=== PATIENT | female | born 1955 | race Caucasian/White ===

== ENCOUNTER 2022-11-22 10:41 | Emergency (ER) | payer MEDICARE, SELFPAY ==
[2022-11-22 10:45] VITALS: BP 149/84; PULSE 84; RESP 18; TEMP 36.7; O2SAT 97; BMI 29.5
--- NOTE | 2022-11-22 10:48 | XR_ITS ---
The [address] [address] Patient Name: GORDON ORTEGA MRN: [id number] date: 1955 Sex: F Assigned Patient Location: ER Current Patient Location: ED.MAIN Accession/Order Number: [id number] Exam Date: 11/22/2022 10:57 Report Date: 11/22/2022 11:29 At the request of: MARIELLE BEASLEY Procedure: XR ribs RT min 3V w CXR1V EXAMINATION: XR ribs RT min 3V w CXR1V 11/22/2022 8:27 AM PDT HISTORY: injury COMPARISONS: None. FINDINGS: Lines and tubes: None. Heart and mediastinum: The heart and the mediastinum are normal for technique. Lungs and pleura: The lungs are clear. There is no evidence of pneumonia or pulmonary edema. There is no pleural effusion or pneumothorax. Bones: No acute osseous abnormality. RIGHT RIBS: No displaced rib fracture. XR/XR ribs RT min 3V w CXR1V IMPRESSION: 1. No acute cardiopulmonary disease. 2. No displaced rib fracture on the right. Electronically authenticated by: SUE BREWER Date: 11/22/2022 11:29
--- NOTE | 2022-11-22 11:13 | ED.GENADUL1 ---
HPI - General Adult General Chief complaint: Extremity Injury, Upper Stated complaint: RT RIB PAIN/FALL Time Seen by Provider: 11/22/22 11:07 Source: patient Mode of arrival: walk-in Limitations: no limitations History of Present Illness HPI narrative: Patient is a 67-year-old female who is presenting to the Emergency Room after a rib injury. Patient states she was in [place] last night, helping her son set up for an event. Patient says that there is a chair that somehow became loose, and hit the right lower anterior aspect of her chest wall. Patient's having pain underneath the right breast radiating across the right anterior chest wall causing some pain along with pain to the right breast as well. Patient drove home furniture last night. He got home around 2 in the morning. Patient took Tylenol with the bed. Patient woke up and was still having the pain since she came in for evaluation. Patient has pain with deep inspiration, no bruising, no bruising to the right breast, no other acute complaints at this time. Patient drove to the Emergency Room today. . All systems are negative except as noted/marked. All systems reviewed and otherwise negative. . Nurses note and vital signs reviewed and patient is not hypoxic. General: The patient appears well and in no apparent distress. Patient is resting comfortably on cart. Patient is not toxic, lethargic, or listless Skin: Warm, dry, no pallor noted. There is no rash noted. No petechiae, purpura. Head: Normocephalic, atraumatic Eye: Normal conjunctiva, no drainage, EOMI. PERRL Ears, Nose, Mouth, and Throat: oral mucosa is moist. Nares patent. Mouth without vesicles. Cardiovascular: Regular Rate and Rhythm, no murmur, gallop, rub, Patient has mild to moderate tenderness to palpation to the right lower anterior chest wall, midclavicular line over ribs approximate 5-7, And also underneath the right breast. I did not examine the right breast, patient's Says there is no bruising to her right breast. Patient has no bruising to the lower right anterior chest wall over the right lateral chest wall. Patient has splinting with deep inspiration. No other acute injury. Respiratory: Patient is in no distress, no accessory muscle use, lungs are clear to auscultation, no wheezing, rales or rhonchi Back: non-tender, no CVA tenderness bilaterally to percussion. No CT LS midline pain. No pain to the right anterior chest wall with deep palpation to the right posterior and right lateral chest wall. GI: soft, no tenderness Musculoskeletal: Patient has full range of motion of all of the extremities, no motor, sensory, or focal neurological deficits Neurological: A&O x3, normal speech Psychiatric: Cooperative Related Data Home Medications Medication Instructions Recorded Confirmed No Known Home Medications 11/22/22 11/22/22 Allergies Allergy/AdvReac Type Severity Reaction Status Date / Time Sulfa (Sulfonamide AdvReac Intermediate Verified 11/22/22 10:45 Antibiotics) trimethoprim AdvReac Intermediate Verified 11/22/22 10:45 bactrim AdvReac Intermediate Uncoded 11/22/22 10:45 Exam Constitutional Vital Signs, click to edit/add: Last Vital Signs Temp 98.0 F 11/22/22 10:45 Pulse 84 11/22/22 10:45 Resp 18 11/22/22 10:45 BP 149/84 H 11/22/22 10:45 Pulse Ox 97 11/22/22 10:45 O2 Del Method Room Air 11/22/22 10:45 Course Vital Signs Vital signs: Vital Signs Temperature 98.0 F 11/22/22 10:45 Pulse Rate 84 11/22/22 10:45 Respiratory Rate 18 11/22/22 10:45 Blood Pressure 149/84 H 11/22/22 10:45 Pulse Oximetry 97 11/22/22 10:45 Oxygen Delivery Method Room Air 11/22/22 10:45 Temperature 98.0 F 11/22/22 10:45 Pulse Rate 84 11/22/22 10:45 Respiratory Rate 18 11/22/22 10:45 Blood Pressure 149/84 H 11/22/22 10:45 Pulse Oximetry 97 11/22/22 10:45 Oxygen Delivery Method Room Air 11/22/22 10:45 Medical Decision Making [facility] Narrative Medical decision making narrative: Patient chest x-ray shows no acute cardio poor disease, no rib fracture. See the official report. Patient had ice applied, was given an incentive sprout her. X-ray show no acute findings. Patient was educated on alternate Tylenol and anti-inflammatories for pain along with ice. Patient follow-up with PCP. Activity as tolerated by patient at home. Patient was here lengthy amount time secondary to volume in a critical patient at that time. Patient is very understanding, no questions at discharge. Discharge Plan Discharge Chief Complaint: Extremity Injury, Upper Clinical Impression: Rib pain on right side Patient Disposition: Home, Self-Care Condition: Good Prescriptions / Home Meds: No Action No Known Home Medications Instructions: Chest Wall Pain (ED), Rib Contusion (ED) Additional Instructions: Ice 20 minutes on, 20 minutes off. Alternate Tylenol and anti-inflammatories for pain. Follow-up with PCP. Use incentive spirometer every hour while awake. Stand Alone Forms: Portal Instructions Referrals: LOUISE URIARTE [Primary Care Provider] - 1 week Discharge Date/Time: 11/22/22 14:23
[2022-11-22] MEDS: ACETAMINOPHEN 500 MG TABLET 1000 MG PO (11:28)
== END 2022-11-22 14:23 | disposition home or self-care (01) ==
PROVIDERS: Emergency Provider Emergency Medicine; PCP Family Medicine
DX: R07.81 Pleurodynia (principal)
CPT/HCPCS: 71101; 94667; 99283

== ENCOUNTER 2025-03-21 14:48 | Outpatient (OUT) | payer MEDICARE, SELFPAY ==
--- OUTSIDE RECORDS SUMMARY | 2025-03-21 14:50 | XMS_ITS | Clinical Summary ---
Author Organization [facility] Healthcare Address [address] [place] [address] Care Team Providers Care Criminal Justice Social Worker Name Role Phone Kenrick Garay MD Unavailable [phone] Kenrick Garay MD Primary Care Provider [phone] Debra Avina MD Unavailable [phone] Maliha Hammond DO Unavailable [phone] Allergies Active AllergyReactionsCriticalityNoted RosuXeahkxslRpotjskmsasfDkrqu07/07/2024 myalgias SulfamethoxazoleGI luayhcvuwtp53/17/2023Sulfamethoxazole-TrimethoprimGI afkxglpzjff91/17/1360Dyyakaqrpyib85/17/2023 Other Reaction(s): GI upset Medications MedicationSigDispense QuantityRefillsLast FilledStart DateEnd DateStatus aspirin 81 MG chewable tablet 1 tablet Orally M-W-FActive Multiple Vitamin (MULTIVITAMIN ADULT PO) MultivitaminActive Calcium Carbonate Antacid (CALCIUM CARBONATE PO) CalciumActive clobetasol (Temovate) 0.05 % external solution Indications:Psoriasis vulgarisApply to affected areas on the scalp up to twice a day when flared, do not use one the face, groin,or underarms, 30 day supply 50 mL ctive triamcinolone (Kenalog) 0.1 % cream Indications:DermatographismApply to affected areas, up to twice a day when flared, do not use one the face, groin, or underarms, 30 day supply 80 g 4Active Probiotic Product (Probiotic Daily) capsule Take 1 capsule by mouth 3 (three) times a weekActive polyethylene glycol, PEG, 3350 (Miralax) 17 g packet Take 17 g by mouth 3 (three) times a weekActive cycloSPORINE (Restasis) 0.05 % ophthalmic emulsion Administer 1 drop into both eyes in the morning and 1 drop before bedtime. 4Active Magnesium Bisglycinate 100 MG tablet Indications:Chronic fatigueTake 1 tablet by mouth in the /21/2025Active NIACIN SR Indications:Mixed dyslipidemiaTake 500 mg by mouth in the uspvxox8905/11/2024 Active Additional Information Patient not taking.Reported on 01/31/2025 carBAMazepine (TEGretol) 200 MG tablet Indications:Trigeminal neuralgia of right side of faceTake 0.5-1 tablets (100- 200 mg) by mouth 2 (two) times a day 180 tablet 506Active gxwccycr-lnpdigcvh-nyhlntmsswnvdy (Cortisporin) 3.5-37909-7 otic suspension Indications:Infective Otitis ExternaApply 3 drops to affected ear 3 times daily for 7 days 10 mL 5Active Active Problems ProblemNoted DateDiagnosed DateCardiac ouethg155Chronic kidney disease, stage 2 (mild)09/23/2024Myalgia due to mvibmf6309/23/2024Mixed dyslipidemia 06/19/2023Trigeminal neuralgia of right side of face06/16/2023Irritable bowel syndrome with upspmwukkucv72/29/2074Qlvdtxnka62/17/2023Urge incontinence of urine09/27/2021Gastroesophageal reflux disease with esophagitis without hotkddyqvn89/28/2022hronic pyfcjnv7805/30/2016Varicose veins of both lower qkmxolewsiy78/09/2017Family history of breast jxpwjc6110/19/2015Fibrocystic breast wzysgkz6510/19/2015Acquired ukjfavatfqjjbz76/16/2015ESS (euthyroid sick syndrome) 04/05/2015Venous (peripheral) pibbynwqddkgs50/16/2015 Encounters DateTypeDepartmentCare QkopWkubspvordp39/20/2025Telephone [facility] [place] [facility] [address] [place] [address] Caitlin Yeh, ELVIRA Care Pdqkoebjffow53/17/2025Telephone [facility] [place] [facility] [address] [facility] [address] [place] [address] Kenrick Garay MD Care Qntyhoomkpss21/17/2025Telephone [facility] [place] [address] [facility] [address] [facility] [address] [place] [address] Kenrick Garay MD 02/01/2025Telephone [facility] [address] [place] [facility] [place] [address] Shannon Rojo NP 01/31/2025 11:25 AM EDTOffice Visit [facility] [place] [facility] [address] [place] [phone] Shannon Rojo NP Acute cystitis without hematuria (Primary Dx); Shgdftz0801/31/20251764Whspyi04/06/2025Telephone [facility] [address] [place] [address] Tatianna Chen LPN 01/20/2025Results Follow-Up [facility] [place] [facility] [address] [place] [address] Ashley Roa PA Dermatopathology exam01/13/2025 8:30 AM EDTOffice Visit [facility] [address] [place] [address] Debra Avina MD Seborrheic keratosis, inflamed (Primary Dx); Neoplasm of unspecified behavior of bone, soft tissue, and skin01/13/2025amboo flowsheet [facility] [address] [place] [address] Debra Avina MD 01/13/2025Travelfrom Last 3 Months Immunizations ImmunizationAdministration DatesNext DuePneumococcal Polysaccharide PPSV23 03/03/2008 Family History Medical HistoryRelationNameCommentsMVABrotherBrain cancerFatherLouis Jono FletcherCancerFatherLouis Jono FletcherBreast cancerMaternal Grandmother HypertensionMotherMaryEllen FletcherDiabetesPaternal GrandmotherMabel Neal Colon cancerNeg HxMelanomaNeg HxOvarian cancerNeg HxRelationNameStatusComments BrotherDeceased1 brotherDaughterAlive1 daughterFatherLouis Jono FletcherDeceased Maternal GrandmotherMotherMaryEllen FletcherDeceasedPaternal GrandmotherMabel FletcherSisterAlive1 sisterSonAlive1 son Social History Tobacco UseTypesPacks/DayYears UsedDateSmoking Tobacco: NeverSmokeless Tobacco: Never Tobacco Cessation:Counseling Given: Yes Alcohol UseStandard Drinks/WeekCommentsNot Currently2 (1 standard drink = 0.6 oz pure alcohol)Caffeine intake: decaf coffee, xpfsL1250 Health LiteracyAnswerDate RecordedHow often do you need to have someone help you when you read instructions, pamphlets, or other written material from your doctor or pharmacy? Never04/01/2024Humiliation, Afraid, Rape, and Kick questionnaireAnswerDate RecordedWithin the last year, have you been afraid of your partner or ex-partner?No12/16/2022Within the last year, have you been humiliated or emotionally abused in other ways by your partner or ex-partner?No12/16/2022 Within the last year, have you been kicked, hit, slapped, or otherwise physically hurt by your partner or ex-partner?No12/16/2022Within the last year, have you been raped or forced to have any kind of sexual activity by your part ner or ex-partner?No12/16/2022Social Connection and Isolation PanelAnswerDate RecordedIn a typical week, how many times do you talk on the phone with family, friends, or neighbors?More than three times a week04/01/2024How often do you get together with friends or relatives?Twice a week04/01/2024How often do you attend scientologist or restorationist services?More than 4 times per year04/01/2024o you belong to any clubs or organizations such as scientologist groups, unions, fraternal or athletic groups, or school groups?Yes04/01/2024How often do you attend meetings of the clubs or organizations you belong to?More than 4 times per year04/01/2024 Are you , , , , never , or living with a partner?Rkwniii6004/01/2024UDIT-CAnswerDate RecordedQ1: How often do you have a drink containing alcohol?Monthly or less04/01/2024Q2: How many drinks containing alcohol do you have on a typical day when you are drinking?1 or Q3: How often do you have six or more drinks on one occasion?Never04/01/2024Overall Financial Resource Strain (CARDIA)AnswerDate RecordedHow hard is it for you to pay for the very basics like food, housing, medical care, and heating?Not hard at all04/01/2024HQ-2AnswerDate RecordedPatient Health Questionnaire-2 Score0 10/30/2024[facility] [place] [facility] Occupational Health - Occupational Stress QuestionnaireAnswerDate RecordedDo you feel stress - tense, restless, nervous, or anxious, or unable to sleep at night because yourmind is troubled all the time - these days?Not at all04/01/2024Exercise Vital SignAnswerDate RecordedOn average, how many days per week do you engage in moderate to strenuous exercise (like a brisk walk)?3 days04/01/2024On average, how many minutes do you engage in exercise at this level?30 min04/01/2024Hunger Vital SignAnswerDate Recorded Within the past 12 months, you worried that your food would run out before you got the money to buymore.Never true04/01/2024Within the past 12 months, the food you bought just didn't last and you didn't have money to get more.Never true 04/01/2024RAPARE - TransportationAnswerDate RecordedIn the past 12 months, has lack of transportation kept you from medical appointments or from getting medications?No04/01/2024In the past 12 months, has lack of transportation kept you from meetings, work, or from getting things needed for daily living?No 04/01/2024Housing Stability Vital SignAnswerDate RecordedIn the last 12 months, was there a time when you were not able to pay the mortgage or rent on time?No 12/16/2022Number of Places Lived in the Last YearNot on file12/16/2022In the last 12 months, was there a time when you did not have a steady place to sleep or slept in [place] (including now)?No12/16/2022Housing Stability Vital Sign AnswerDate RecordedIn the last 12 months, was there a time when you were not able to pay the mortgage or rent on time?No04/01/2024Number of Times Moved in the Last YearNot on file04/01/2024t any time in the past 12 months, were you homeless or living in a senior living (including now)?No04/01/2024CommentsNo Sex and Gender InformationValueDate RecordedSex Assigned at BirthNot on file Legal XqdLelori88/15/2023 6:46 PM EDTGender IdentityNot on fileSexual OrientationNot on fileOccupationIndustryJob Start DateJob End DateRetired , TeacherNot on fileNot on fileNot on file Last Filed Vital Signs Vital SignReadingTime TakenCommentsBlood Urueodyy901/8601/31/2025 11:30 AM EDT Ckbrd386901/31/2025 11:30 AM VVWUpfoyibphwy35.9 ??C (98.5 ??F)01/31/2025 11:30 AM EDTRespiratory Oztn4804 11:30 AM EDTOxygen Vtutdkgarm33%01/31/2025 11:30 AM EDTInhaled Oxygen Concentration--Racpte24.2 kg (157 lb)01/31/2025 11:30 AM KZRFonilz027.7 cm (5' 8 )11/02/2024 9:05 AM EDTBody Mass Index23.8711/02/2024 9:05 AM EDT Plan of Treatment DateTypeDepartmentCare Team (Latest Contact Info)Beinudqvadm73/20/2026 1:00 PM ESTOffice Visit [facility] [address] [place] [phone] Debra Avina MD [address] [place] [address] 05/12/2025 10:15 AM ESTOffice Visit [facility] [address] [place] [phone] Maliha Hammond DO [address] [place] [address] 08/09/2025 2:00 PM EDTOffice Visit [facility] [address] [place] [address] Debra Avina MD [address] [place], [place] [phone] Health MaintenanceDue DateLast DoneCommentsCT Zxpelkwdmbyu39/12/1955FIT-DNA 1955FIT1955FOBT1955 8098Odazbrbobdqkh79/12/8483Muwzhdige92/10/2026 04/30/2024, 02/21/2022, 01/24/2021, Additional history existsMedicare Annual Wellness (AWV), 04/28/2024, 06/16/2023, Additional history existsPneumococcal Vaccine: 65+ Years (2 of 2 - PCV) Postponed from 03/03/2009 (Patient Refused)Xwcgygkofwu08, 01/13/2024, 11/14/2021, Additional history existsColorectal Cancer Screening 4COVID-19 VaccineDiscontinuedInfluenza VaccineDiscontinued Procedures Procedure NamePriorityDate/TimeAssociated DiagnosisCommentsURINARY TRACT INFECTION (HTRX)Nghqkme3901/31/2025 11:43 AM EDT Acute cystitis without hematuria URINALYSIS ANALYZER FZLQTwbynrs08/13/2025 11:29 AM EDT Dysuria LIPID AGIMOIuiejul70/06/2025 10:10 AM EDT Mixed dyslipidemia CRYOTHERAPY SKIN SPARQJSoffhta47/25/2025 9:00 AM EDT Seborrheic keratosis, inflamed SKIN / NAIL EGGYAGHvqfttb78/25/2025 8:41 AM EDT Neoplasm of unspecified behavior of bone, soft tissue, and skin DERMATOPATHOLOGY LWGQSzlupua70/25/2025 12:00 AM EDT Neoplasm of unspecified behavior of bone, soft tissue, and skin BI MAMMOGRAM SCREENING TOMOSYNTHESIS BEVTMBCZZMesdjiw66/10/2025 9:34 AM EST Encounter for screening mammogram for breast cancer HKKKCVNJXFVKoclsgq55/24/2024 8:29 AM EDTfrom Last 3 Months or Most Recently Relevant to Health Maintenance Results * URINARY TRACT INFECTION (HTRX) (01/31/2025 11:43 AM EDT)ComponentValueRef RangeTest MethodAnalysis TimePerformed AtPathologist SignatureACINETOBACTER HAILNSQH622.961 - 24.689 ppm02/01/2025 7:46 AM EDTHealth[facility] ACINETOBACTER BAUMANIINot Ttrqfryp10.961 - 24.689 ppm02/01/2025 7:46 AM EDT [facility] LabPortCITROBACTER HVJNNTNB443.000 - 32.015 ppm02/01/2025 7:46 AM EDTHealthTrackRx at LabPortCITROBACTER FREUNDIINot Kubrwkqj47.000 - 32.015 ppm02/01/2025 7:46 AM EDTHealthTrackRx at LabPortENTEROBACTER AEROGENES, NWKGKPQ944.000 - 32.290 ppm02/01/2025 7:46 AM EDTHealthTrackRx at LabPortENTEROBACTER AEROGENES, CLOACAENot Angdhjdd34.000 - 32.290 ppm 02/01/2025 7:46 AM EDTHealthTrackRx at LabPortENTEROCOCCUS FAECALIS, FAECIUM0 26.000 - 33.043 ppm02/01/2025 7:46 AM EDTHealthTrackRx at LabPortENTEROCOCCUS FAECALIS, FAECIUMNot Wgfxjhpp26.000 - 33.043 ppm02/01/2025 7:46 AM EDT [facility] at LabPortESCHERICHIA SFCX072.000 - 28.500 ppm02/01/2025 7:46 AM EDTHealthTrackRx at LabPortESCHERICHIA COLINot Dxlptgub07.000 - 28.500 ppm 02/01/2025 7:46 AM EDTHealthTrackRx at LabPortKLEBSIELLA PNEUMONIAE, OXYTOCA0 23.000 - 31.865 ppm02/01/2025 7:46 AM EDTHealthTrackRx at LabPortKLEBSIELLA PNEUMONIAE, OXYTOCANot Bylcczsf48.000 - 31.865 ppm02/01/2025 7:46 AM EDT [facility] at LabPortMORGANELLA UNXILOFC427.961 - 24.689 ppm02/01/2025 7:46 AM EDTHealthTrackRx at LabPortMORGANELLA MORGANIINot Mysmzvqj54.961 - 24.689 ppm02/01/2025 7:46 AM EDTHealthTrackRx at LabPortPROTEUS MIRABILIS, VULGARIS0 23.000 - 28.500 ppm02/01/2025 7:46 AM EDTHealthTrackRx at LabPortPROTEUS MIRABILIS, VULGARISNot Iahbbgja17.000 - 28.500 ppm02/01/2025 7:46 AM EDT [facility] at LabPortPSEUDOMONAS ISGNFHZZTE749.000 - 31.801 ppm02/01/2025 7:46 AM EDTHealthTrackRx at LabPortPSEUDOMONAS AERUGINOSANot Caxcsotc42.000 - 31.801 ppm02/01/2025 7:46 AM EDTHealthTrackRx at LabPortSTAPHYLOCOCCUS AUREUS0 26.000 - 31.595 ppm02/01/2025 7:46 AM EDTHealth[facility] at [facility] STAPHYLOCOCCUS AUREUSNot Pttxwozh82.000 - 31.595 ppm02/01/2025 7:46 AM EDT [facility] at LabPortSTREPTOCOCCUS AGALACTIAE (GROUP B STREP)026.000 - 32.435 ppm02/01/2025 7:46 AM EDTHealthTrackRx at LabPortSTREPTOCOCCUS AGALACTIAE (GROUP B STREP)Not Bowvmvet94.000 - 32.435 ppm02/01/2025 7:46 AM EDTHealthTrackRx at LabPortCANDIDA ALBICANS, PARAPSILOSIS, MNVBORRWCB401.000 - 30.347 ppm02/01/2025 7:46 AM EDTHealthTrackRx at LabPortCANDIDA ALBICANS, PARAPSILOSIS, TROPICALISNot Agolyxqx98.000 - 30.347 ppm02/01/2025 7:46 AM EDT [facility]PortCANDIDA HLAIDMRR630.000 - 31.618 ppm02/01/2025 7:46 AM EDTHealthTrackRx at LabPortCANDIDA GLABRATANot Qppzgnvm61.000 - 31.618 ppm 02/01/2025 7:46 AM EDTHealthTrackRx at LabPortCANDIDA MCMFNR887.000 - 30.873 ppm02/01/2025 7:46 AM EDTHealthTrackRx at LabPortCANDIDA KRUSEINot Detected 23.000 - 30.873 ppm02/01/2025 7:46 AM EDTHealthTrackRx at LabPortSERRATIA OPUKXIVSID933.000 - 31.581 ppm02/01/2025 7:46 AM EDT[facility] SERRATIA MARCESCENSNot Bpyhtplz01.000 - 31.581 ppm02/01/2025 7:46 AM EDT [facility] at LabPortSTREPTOCOCCUS PYOGENES (GROUP A STREP)019.961 - 24.689 ppm02/01/2025 7:46 AM EDTHealthTrackRx at LabPortSTREPTOCOCCUS PYOGENES (GROUP A STREP)Not Zzyjcpom14.961 - 24.689 ppm02/01/2025 7:46 AM EDTHealthTrackRx at LabPortSTAPHYLOCOCCUS EPIDERMIDIS, HAEMOLYTICUS, LUGDUNENSIS, SAPROPHYTICUS (MUPHH790.961 - 24.689 ppm02/01/2025 7:46 AM EDT[facility] STAPHYLOCOCCUS EPIDERMIDIS, HAEMOLYTICUS, LUGDUNENSIS, SAPROPHYTICUS (URINANot Juyapvwk68.961 - 24.689 ppm02/01/2025 7:46 AM EDT[facility] at [facility] STAPHYLOCOCCUS EPIDERMIDIS, HAEMOLYTICUS, LUGDUNENSIS, SAPROPHYTICUS (URINA0 19.961 - 24.689 ppm02/01/2025 7:46 AM EDT[facility] at [facility] STAPHYLOCOCCUS EPIDERMIDIS, HAEMOLYTICUS, LUGDUNENSIS, SAPROPHYTICUS (URINANot Gyqhafyu48.961 - 24.689 ppm02/01/2025 7:46 AM EDTHealth[facility] Specimen (Source)Anatomical Location / LateralityCollection Method / Volume Collection TimeReceived BuxyHflli63/13/2025 11:43 AM EDT1 2:05 AM EDT Narrative Authorizing ProviderResult TypeResult StatusShannon Rojo [facility] BLOOD ORDERABLESFinal ResultPerforming OrganizationAddressCity/State/ZIP CodePhone Number [facility] [address] [place] [address] * URINALYSIS ANALYZER TEST (01/31/2025 11:29 AM EDT)ComponentValueRef RangeTest MethodAnalysis TimePerformed AtPathologist SignatureLEUKOCYTESnegativeNegative NITRITESnegativeNegativeUROBILINOGENnegative0.2 - 1.0PROTEINnegativeNegativePH 6.05.0 - 6.0BLOODnegativeNegativeSPECIFIC GRAVITY1.0151.001 - 1.035KETONES negativeNegativeBILIRUBINnegativeNegativeGLUCOSEnegativeNegativeSpecimen (Source)Anatomical Location / LateralityCollection Method / VolumeCollection TimeReceived ZygqDsryj82/13/2025 11:29 AM EDT Narrative Authorizing ProviderResult TypeResult StatusMichael Salas DOPOINT OF CARE TEST ENTER/EDIT ORDERABLESFinal Result * (ABNORMAL) Lipid panel (01/24/2025 10:10 AM EDT)ComponentValueRef RangeTest MethodAnalysis TimePerformed AtPathologist SignatureCHOLESTEROL, RDGAQ083(H) <200 mg/dLQUESTHDL NCDWRAHTZAS72> OR = 50 mg/wDKVBLBEYQPYXIGKIWYS55<150 mg/dL QUESTLDL QDCBTJPCZBE633(H)mg/dL (calc)QUESTComment: Reference range: <100 Desirable range <100 mg/dL for primary prevention; <70 mg/dL for patients with CHD or diabetic patients with > or = 2 CHD risk factors. LDL-C is now calculated using the Esepranza calculation, which is a validated novel method providing better accuracy than the Friedewald equation in the estimation of LDL-C. Alejandro DENIS et al. ROSY. 2013;310(19): 7202-0486 (http://education.Action.Compliance 360/faq/TUA941) CHOL/HDLC RATIO2.8<5.0 (calc)QUESTNON HDL QLXMWUUAHVN270(H)<130 mg/dL (calc) QUESTComment: For patients with diabetes plus 1 major ASCVD risk factor, treating to a non-HDL-C goal of <100 mg/dL (LDL-C of <70 mg/dL) is considered a therapeutic option. Specimen (Source)Anatomical Location / LateralityCollection Method / Volume Collection TimeReceived TimeBloodVenous blood specimen / Ctbbnsq6601/24/2025 10:10 AM EDT1 10:10 AM EDT Narrative [facility] - 01/25/2025 6:02 AM EDT FASTING:YES FASTING: YES Resulting Agency Comment Performing Organization Information ?Site ID: [id number] ?Name: [facility] ?Address: [address] [place] [phone] ?Director: Praveen Dewey MD Authorizing ProviderResult TypeResult StatusEdcarline Garay MDLAB BLOOD ORDERABLESFinal ResultPerforming OrganizationAddressCity/State/ZIP CodePhone Number [facility]ST * Cryotherapy, skin lesion (01/13/2025 9:00 AM EDT) Narrative Authorizing ProviderResult TypeResult StatusEmisabell Avina MDDERM PROCEDURE ORDERABLESFinal Result * Lesion biopsy (01/13/2025 8:41 AM EDT) Narrative Rosa Richardson MA - 01/13/2025 8:41 AM EDT Type of biopsy: tangential Informed consent: discussed and consent obtained ?? Informed consent comment: ??The risks and benefits of the biopsy were discussed. Risks include but are not limited to bleeding, infection, scarring, pain, and nerve damage. An opportunity to ask questions prior to the procedure was permitted and all questions were answered. Patient was prepped and draped in usual sterile fashion: area cleansed with alcohol. Anesthesia: the lesion was anesthetized in a standard fashion ?? Anesthetic: ??1% lidocaine w/ epinephrine 1-100,000 buffered w/ 8.4% NaHCO3 Instrument used: DermaBlade ?? Hemostasis achieved with: electrodesiccation ?? Outcome: patient tolerated procedure well ?? Outcome comment: ??The specimen was placed in a prelabeled formalin container to be sent for pathology Post-procedure details: sterile dressing applied and wound care instructions given ?? Post-procedure details comment: ??Emphasized need to contact clinic for any signs of infection, uncontrollable bleeding, or complications. Dressing type: bandage ?? Additional details: ??Photo taken: yes Amount of lidocaine used: 0.3 cc Authorizing ProviderResult TypeResult StatusEmily A Fabrice MDDERM PROCEDURE ORDERABLESFinal Result * Dermatopathology exam (01/13/2025 12:00 AM EDT)ComponentValueRef RangeTest MethodAnalysis TimePerformed AtPathologist SignatureSPECIMEN TYPE SPECIMEN: RIGHT MALAR CHEEK EMILY ONCXLTMFNGIUTT18 Code C44.319AURORA DIAGNOSTICSPROTOCOLF - FLATAURORA DIAGNOSTICSFinal Diagnosis NODULAR BASAL CELL CARCINOMA (SEE COMMENT). COMMENT: The tumor is transected across the base. EMILY DIAGNOSTICSGross TextAURORA DIAGNOSTICSMicroscopic DescriptionMicroscopic examination performed.EMILY [id number]*1AURORA DIAGNOSTICSSpecimen (Source)Anatomical Location / LateralityCollection Method / VolumeCollection TimeReceived TimeSkinTopography unknown / Hdehtjp4101/13/2025 8:41 AM EDTComment: Differential Diagnosis: BCC vs sebaceous hyperplasia Check Margins: No Size of lesion: 0.5 x 0.4 cm Diagnosis: (D49.2) Neoplasm of unspecified behavior of bone, soft tissue, and skin Plan: Lesion biopsy Narrative Authorizing ProviderResult TypeResult StatusEmily Kristi ALDANA PATHOLOGY ORDERABLESFinal ResultPerforming OrganizationAddressCity/State/ZIP CodePhone Number [facility] * Bilateral screening mammogram with tomosynthesis (04/30/2024 9:34 AM EST) Anatomical RegionLateralityModalityBreastBilateralMammographySpecimen (Source) Anatomical Location / LateralityCollection Method / VolumeCollection Time Received Time04/30/2024 9:34 AM EST Impressions 04/30/2024 9:37 AM EST NO MAMMOGRAPHIC EVIDENCE OF MALIGNANCY. ? ROUTINE FOLLOW-UP IS RECOMMENDED IN ONE YEAR. ? RESULT CODE: 1 ? Negative ? DENSITY CODE: 2 (approximately 25-50% glandular) ? FOLLOW UP: 1YR ? The false-negative rate of mammography is approximately 10-percent. ? Management of a palpable abnormality must be based on clinical grounds. ? Patient was entered into a reminder system with a target due date for the next mammogram. ? Impression dictated by: Ranjan Lee Jr., D.O.04/30/2024 9:35 AM ? Dictation Location: S01 ? Transcribed By: ? PWS ?04/30/24 0935 ? Dictated By: ?Ranjan Lee Jr, DO ?04/30/24 0934 ? Signed By: <Electronically signed by Ranjan Lee Jr, DO in OV> ?04/30/24 0935 Narrative 04/30/2024 9:37 AM EST [facility] ?[facility] [place] ?[address] ? [place] [address] ? Mammography Report ? Signed ? Patient: Nottke,Shannan L ?MR#: [id number] ? : 1955 ?Acct:[id number] ? Age/Sex: 68 / F ?ADM Date: 04/30/24 ? Loc: [place] ?Room: ?Type: REG CLI ?? Attending Dr: Maliha Hammond DO ?? Copies to: Kenrick Garay MD ?? Maliha Hammond, DO ? Ordering Provider: Maliha Hammond, DO ?? Date of Service: 04/30/24 ?? MM/MM screening mammo BI w/CAD: screening ? CLINICAL DATA: ??Screening for malignancy. ? SCREENING MAMMOGRAM - FULL FIELD DIGITAL WITH TOMOSYNTHESIS AND CAD ? COMPARISON:Mammograms dating back to 2019 ? Tomosynthesis craniocaudal and mediolateral oblique views of both breasts were obtained using low- dose digital technique. ?? This examination was reviewed with the aid of CAD. ? FINDINGS: ? The breast tissue is composed of scattered fibroglandular densities. ??There are no dominant masses, typically malignant calcifications or architectural distortion. ??There has been no significant interval change. ? MM/MM screening mammo BI w/CAD ?? Procedure Note Radiology, Radiologist, - 04/30/2024 [facility] [place] [address] [place] [address] Mammography Report Signed Patient: Shannan Hillman LMR#: [id number] : 5Acct:[id number] Age/Sex: 68 / FADM Date: 04/30/24 Loc: [place] Room:Type: [facility] Attending Dr: Maliha Hammond DO Copies to: MD Maliha Moreno DO Ordering Provider: Maliha Hammond DO Date of Service: 04/30/24 MM/MM screening mammo BI w/CAD: screening CLINICAL DATA: Screening for malignancy. SCREENING MAMMOGRAM - FULL FIELD DIGITAL WITH TOMOSYNTHESIS AND CAD COMPARISON:Mammograms dating back to 2019 Tomosynthesis craniocaudal and mediolateral oblique views of both breastswere obtained using low- dose digital technique. This examination was reviewed with the aid ofCAD. FINDINGS: The breast tissue is composed of scattered fibroglandular densities.There are no dominant masses, typically malignant calcifications or architectural distortion. There hasbeen no significant interval change. MM/MM screening mammo BI w/CAD IMPRESSION: NO MAMMOGRAPHIC EVIDENCE OF MALIGNANCY. ROUTINE FOLLOW-UP IS RECOMMENDED IN ONE YEAR. RESULT CODE: 1 Negative DENSITY CODE: 2 (approximately 25-50% glandular) FOLLOW UP: 1YR The false-negative rate of mammography is approximately 10-percent. Management of a palpable abnormality must be based on clinical grounds. Patient was entered into a reminder system with a target due date for thenext mammogram. Impression dictated by: Ranjan Lee Jr., D.O.04/30/2024 9:35 AM Dictation Location: [facility] Transcribed By: [facility] 04/30/2435 Dictated By: Ranjan Lee Jr, DO 04/30/24 0934 Signed By: <Electronically signed by Ranjan Lee Jr, DO inOV> 04/30/24 0935 Authorizing ProviderResult TypeResult StatusMaliha Hammond DOIMG BI PROCEDURESFinal Result * Colonoscopy (01/13/2024 8:29 AM EDT)Anatomical RegionLateralityModality Endoscopy Narrative Authorizing ProviderResult TypeResult StatusCatherine Ly DOENDOSCOPY PROCEDURE ORDERABLESFinal Result from Last 3 Months or Most Recently Relevant to Health Maintenance Insurance Advance Directives TypeDate RecordedPatient RepresentativeExplanationAdvance Directives and Living Will Power Of AttorneyAdvance Directives and Living Will Living Will Care Teams Team MemberRelationshipSpecialtyStart DateEnd Date Kenrick Garay MD [address] [place] [address] (Fax) PCP - [employer]04/21/20 Kenrick Gaary MD [address] [place] [address] (Fax) PCP - GeneralFamily Medicine08/27/22 Debra Avina MD [address] [place] [address] Referring PhysicianDermatology11/02/24 Maliha Hammond DO [address] [place], [place] [phone] Referring PhysicianObstetrics and Gynecology11/02/24
--- OUTSIDE RECORDS SUMMARY | 2025-03-21 14:50 | XMS_ITS | Encounter Summary ---
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 (BRVO) ([facility]) Procedures Vascular US carotid artery duplex bilateral Kenrick Garay MD [address] [facility] [address] [place] [address] Phone: tel: fax:[phone] Referral IDStatusReasonStart DateExpiration DateVisits RequestedVisits [id number]/20/20255/ Reason for Visit * ReasonOnset DateCommentsCare Lvbbiekmxwvi73/20/2025 Encounter Details DateTypeDepartmentCare Team (Latest Contact Info)Eqwohepqarm94/20/2025Telephone [facility] [address] [place] [phone] Rao [place], [place] Care Coordination Social History Tobacco UseTypesPacks/DayYears UsedDateSmoking Tobacco: NeverSmokeless Tobacco: NeverAlcohol UseStandard Drinks/WeekCommentsNot Currently2 (1 standard drink = 0.6 oz pure alcohol)Caffeine intake: decaf coffee, [id number] Health Literacy AnswerDate RecordedHow often do you need to have [...] relatives?Twice a week04/01/2024How often do you attend rastafarian or baptism services?More than 4 times per year4Do you belong to any clubs or organizations such as rastafarian groups, unions, fraternal or athletic groups, or school groups?Yes04/01/2024How often do you attend meetings of the clubs or organizations you belong to?More than 4 times per year04/01/2024 Are you , , , , never , or living with a partner?Mjfajsb5704/01/2024UDIT-CAnswerDate RecordedQ1: How often do you have a [...] hard at all04/01/2024HQ-2AnswerDate RecordedPatient Health Questionnaire-2 Score0 10/30/2024[facility] - Occupational Stress QuestionnaireAnswerDate [...] steady place to sleep or slept in [place] (including now)?No12/16/2022Housing Stability Vital Sign AnswerDate RecordedIn the last 12 months, was there a time when you were not able to pay the mortgage or rent on time?No04/01/2024Number of Times Moved in the Last YearNot on file4At any time in the past 12 months, were you homeless or living in a half-way (including now)?No04/01/2024CommentsNo Sex and Gender InformationValueDate RecordedSex Assigned at BirthNot on file Legal GztDppqkz36/15/2023 6:46 PM EDTGender IdentityNot on fileSexual OrientationNot on fileOccupationIndustryJob Start DateJob End DateRetired , TeacherNot on fileNot on fileNot on filedocumented as of this encounter Miscellaneous Notes * Addendum Note - Caitlin Coulter MA - 03/10/2025 2:18 PM ESTAddended by: CAITLIN COULTER on: 03/10/2025 02:18 PM Modules accepted: Orders * Telephone Encounter - Caitlin Coulter MA - 03/10/2025 2:17 PM EST Sent new order * Telephone Encounter - Caitlin Coulter MA - 03/10/2025 1:43 PM EST Copied from VM: Rk, this is the [facility] scheduling. I have a patient, Shannan Welsh. Her birthday is scheduled to come over for an ultrasound root arteries. I am going to need a revised order. The diagnosis on that order does not have medical necessity. If you can send me a new order, please for Shannan note, Thank you. I used the diagnosis you put in the encounter: Reason for Exam Dx: Retinal hemorrhage of right eye [H35.61 (ICD-10-CM)]; Posterior vitreous detachment of right eye [H43.811 (ICD-10-CM)]; Mixed dyslipidemia [E78.2 (ICD-10-CM)] documented in this encounter Plan of Treatment DateTypeDepartmentCare Team (Latest Contact Info)Gpfdtbycsku08/20/2026 1:00 PM ESTOffice Visit [facility] [place] [facility] [address] [place] [phone] Debra Avina MD [address] [place] [address] 05/12/2025 10:15 AM ESTOffice Visit [facility] [place] [facility] [address] [place] [phone] Maliha Hammond DO [address] [place] [address] 08/09/2025 2:00 PM EDTOffice Visit [facility] [place] [facility] [address] [place] [address] Debra Avina MD [address] [place] [address] NameTypePriorityAssociated DiagnosesOrder ScheduleVascular US carotid artery duplex bilateralImagingRoutine Vitreous hemorrhage due to branch retinal vein occlusion (BRVO) ([facility]) Expected: 03/10/2025, Expires: 03/10/2026documented as of this encounter Visit Diagnoses Diagnosis Vitreous hemorrhage due to branch retinal vein occlusion (BRVO) ([facility])- Primary documented in this encounter Additional Health Concerns AssessmentNoted TimePHQ-9 Depression Total Score: 2:00 PM EST documented as of this encounter Care Teams Team MemberRelationshipSpecialtyStart DateEnd Date Kenrick Garay MD [address] [place] [address] [address] (Fax) PCP - [employer]04/21/20 Kenrick Garay MD [address] [facility] [address] [place] [phone] (Fax) PCP - GeneralFamily Medicine08/27/22 Debra Avina MD [address] [place] [address] Referring PhysicianDermatology11/02/24 Maliha Hammond DO [address] [place] [address] Referring PhysicianObstetrics and Gynecology11/02/24documented as of this encounter
--- OUTSIDE RECORDS SUMMARY | 2025-03-21 14:50 | XMS_ITS | Encounter Summary ---
Author Organization [facility] Address [address] [place] [address] Care Team Providers Care Oracle Webcenter Consultant Name Role Phone Kenrick Garay MD Unavailable [phone] Kenrick Garay MD Primary Care Provider [phone] Debra Avina MD Unavailable [phone] Maliha Hammond DO Unavailable [phone] Reason for Visit * ReasonOnset DateCommentsCare Ulrphzuirtyj78/17/2025 Encounter Details DateTypeDepartmentCare Team (Latest Contact Info)Bcdpaknbjui77/17/2025Telephone [address] Medicine [address] [place] [address] Kenrick Garay MD [address] [facility] [address] [place] [address] (Fax) Care Coordination Social History Tobacco UseTypesPacks/DayYears UsedDateSmoking Tobacco: NeverSmokeless Tobacco: NeverAlcohol UseStandard Drinks/WeekCommentsNot Currently2 (1 standard drink = 0.6 oz pure alcohol)Caffeine intake: decaf coffee, [id number] Health Literacy AnswerDate RecordedHow often do you [...] relatives?Twice a week04/01/2024How often do you attend holiness or spiritism services?More than 4 times per year4Do you belong to any clubs or organizations such as holiness groups, unions, fraternal or athletic groups, or school groups?Yes04/01/2024How often do you attend meetings of the clubs or organizations you belong to?More than 4 times per year04/01/2024 Are you , , , , never , or living with a partner?Sdbpwsw3704/01/2024UDIT-CAnswerDate RecordedQ1: How often do you have a [...] hard at all04/01/2024HQ-2AnswerDate RecordedPatient Health Questionnaire-2 Score0 10/30/2024[facility] [place] of [facility] - Occupational Stress QuestionnaireAnswerDate [...] steady place to sleep or slept in [facility] (including now)?No12/16/2022Housing Stability Vital Sign AnswerDate RecordedIn the last 12 months, was there a time when you were not able to pay the mortgage or rent on time?No04/01/2024Number of Times Moved in the Last YearNot on file04/01/2024t any time in the past 12 months, were you homeless or living in a long term (including now)?No04/01/2024CommentsNo Sex and Gender InformationValueDate RecordedSex Assigned at BirthNot on file Legal TcbRjltfz81/15/2023 6:46 PM EDTGender IdentityNot on fileSexual OrientationNot on fileOccupationIndustryJob Start DateJob End DateRetired , TeacherNot on fileNot on fileNot on filedocumented as of this encounter Miscellaneous Notes * Addendum Note - Caitlin ELVIRA Coulter - 03/08/2025 2:49 PM ESTAddended by: CAITLIN COULTER on: 03/08/2025 02:49 PM Modules accepted: Orders * Telephone Encounter - Caitlin ELVIRA Coulter - 03/07/2025 1:34 PM EST Portal message sent * Telephone Encounter - Kenrick Garay MD - 03/07/2025 1:16 PM EST Let Shannan know that I received reviewed the ophthalmology examination report. I reviewed her medical record in her blood sugars have been good. I would like her to take about 12 blood pressure and heart rate readings and get them back to me after Thanksgiving. Try to do these at different times. The only other thing in the note was to get a carotid ultrasound. The diagnoses are in the visit diagnosis and okay to order carotid ultrasound. documented in this encounter Plan of Treatment DateTypeDepartmentCare Team (Latest Contact Info)Wcncwftirez75/20/2026 1:00 PM ESTOffice Visit [facility] [address] [place] [address] Debra Avina MD [address] [place] [address] 05/12/2025 10:15 AM ESTOffice Visit [facility] [address] [place] [address] Maliha Hammond DO [address] [place] [address] 08/09/2025 2:00 PM EDTOffice Visit [facility] [place] [facility] [address] [place] [phone] Debra Avina MD [address] [place] [address] documented as of this encounter Visit Diagnoses Diagnosis Retinal hemorrhage of right eye- Primary Retinal hemorrhage Posterior vitreous detachment of right eye Vitreous degeneration Mixed dyslipidemia documented in this encounter Additional Health Concerns AssessmentNoted TimePHQ-9 Depression Total Score: 2:00 PM EST documented as of this encounter Care Teams Team MemberRelationshipSpecialtyStart DateEnd Date Kenrick Garay MD [address] [place] [address] PCP - [employer]04/21/20 Kenrick Garay MD [address] [place] [address] PCP - GeneralFamily Medicine08/27/22 Debra Avina MD [address] [place] [address] Referring PhysicianDermatology11/02/24 Maliha Hammond DO [address] [place] [address] Referring PhysicianObstetrics and Gynecology11/02/24documented as of this encounter
--- OUTSIDE RECORDS SUMMARY | 2025-03-21 14:50 | XMS_ITS | Encounter Summary ---
Author Organization [facility] Address [address] [place] [address] Care Team Providers Care Canvas Cutter Name Role Phone Kenrick Garay MD Unavailable [phone] Kenrick Garay MD Primary Care Provider [phone] Debra Avina MD Unavailable [phone] Maliha Hammond DO Unavailable [phone] Encounter Details DateTypeDepartmentCare Team (Latest Contact Info)Avszwrlpcge96/17/2025[facility]phone [facility] [address] [place] [address] Kenrick Garay MD [address] [facility] [address] [place] [address] Social History Tobacco UseTypesPacks/DayYears UsedDateSmoking Tobacco: NeverSmokeless Tobacco: NeverAlcohol UseStandard Drinks/WeekCommentsNot Currently2 (1 standard drink = 0.6 oz pure alcohol)Caffeine intake: decaf coffee, [id number] Health Literacy AnswerDate RecordedHow often do you [...] relatives?Twice a week04/01/2024How often do you attend latter-day or yazidi services?More than 4 times per year04/01/2024o you belong to any clubs or organizations such as latter-day groups, unions, fraternal or athletic groups, or school groups?Yes04/01/2024How often do you attend meetings of the clubs or organizations you belong to?More than 4 times per year04/01/2024 Are you , , , , never , or living with a partner?Fdxpzen3404/01/2024UDIT-CAnswerDate RecordedQ1: How often do you have a [...] hard at all04/01/2024HQ-2AnswerDate RecordedPatient Health Questionnaire-2 Score0 10/30/2024[facility] [place] of Occupational Health - Occupational Stress QuestionnaireAnswerDate [...] steady place to sleep or slept in [facility] (including now)?No12/16/2022Housing Stability Vital Sign AnswerDate RecordedIn the last 12 months, was there a time when you were not able to pay the mortgage or rent on time?No04/01/2024Number of Times Moved in the Last YearNot on file04/01/2024t any time in the past 12 months, were you homeless or living in a [facility] (including now)?No04/01/2024CommentsNo Sex and Gender InformationValueDate RecordedSex Assigned at BirthNot on file Legal XdyZhhytl62/15/2023 6:46 PM EDTGender IdentityNot on fileSexual OrientationNot on fileOccupationIndustryJob Start DateJob End DateRetired , TeacherNot on fileNot on fileNot on filedocumented as of this encounter Miscellaneous Notes * Telephone Encounter - Michelle Burgos - 03/07/2025 12:07 PM EST Shnanan stopped in, she had an eye appt with Dr. Kellogg today. Dr. Kellogg requested she have some labwork done and is sending over notes to request it. Shannan asked that we call her when the labs are ordered so she can come in to get them. documented in this encounter Plan of Treatment DateTypeDepartmentCare Team (Latest Contact Info)Luijqrbjjnl38/20/2026 1:00 PM ESTOffice Visit [facility] [place] [facility] [address] [place] [address] Debra Avina MD [address] [place] [address] 05/12/2025 10:15 AM ESTOffice Visit [facility] [place] [facility] [address] [place] [address] Maliha Hammond DO [address] [place] [address] 08/09/2025 2:00 PM EDTOffice Visit [facility] [place] [facility] [address] [place] [address] Debra Avina MD [address] [place] [address] documented as of this encounter Visit Diagnoses Not on filedocumented in this encounter Additional Health Concerns AssessmentNoted TimePHQ-9 Depression Total Score: 2:00 PM EST documented as of this encounter Care Teams Team MemberRelationshipSpecialtyStart DateEnd Date Kenrick Garay MD [address] [place] [address] PCP - [employer]04/21/20 Kenrick Garay MD [address] [place] [address] [facility]22 Debra Avina MD [address] [place] [address] Referring PhysicianDermatology11/02/24 Maliha Hammond DO [address] [place] [address] Referring PhysicianObstetrics and Gynecology11/02/24documented as of this encounter
== END 2025-03-21 14:49 | disposition home or self-care (01) ==
LOC: US 14:48
PROVIDERS: PCP Family Medicine; Visit Provider Family Medicine
DX: H35.61 Retinal hemorrhage, right eye (principal); H43.811 Vitreous degeneration, right eye
CPT/HCPCS: 93880